=== PATIENT | female | born 1995 | race American Indian/Alaskan Native ===

== ENCOUNTER 2018-11-01 09:51 | Inpatient (IN) | payer MEDICAID ==
[2018-11-01] MEDS ORDERED: LACTATED RINGERS 1,000 ML ONE (11:10)
[2018-11-01] MEDS ORDERED: XYLOCAINE 2% INFILTRATI ONE (11:11)
[2018-11-01] MEDS ORDERED: AMPICILLIN/NS 2 GM/100 ML 2 GM/100 ML BAG IV ONE (11:11)
[2018-11-01] MEDS ORDERED: STADOL IV PRN (11:11)
[2018-11-01] MEDS ORDERED: ZOFRAN IV PRN ×2 (11:11→14:48)
[2018-11-01] MEDS ORDERED: BRETHINE SUB-Q PRN (11:11)
[2018-11-01] MEDS ORDERED: MINERAL OIL PO PRN (11:11)
[2018-11-01] MEDS ORDERED: BRETHINE IVP PRN (11:11)
[2018-11-01] MEDS ORDERED: SUBLIMAZE IV PRN (11:11)
[2018-11-01] MEDS ORDERED: NARCAN 0.4 MG/1 ML IV PRN (11:11)
[2018-11-01 11:38] LABS: Hemoglobin 13.7 gm/dl (10.1-14.3); Mean Corpuscular HGB Conc 33 % (30-34); Mean Corpuscular Volume 84 fl (79-97); Red Blood Count 4.98 M/mm3 (3.65-5.03)
[2018-11-01] MEDS ORDERED: PITOCin/NS 20 UNIT/1000ML DRIP 20 UNITS/1,000 ML BAG IV SCH ×2 (12:00→14:48)
[2018-11-01] MEDS ORDERED: LACTATED RINGERS 1,000 ML IV SCH (12:00)
[2018-11-01] MEDS ORDERED: PITOCin/NS 30 UNIT/500ML 30 UNITS/500 ML BAG IV SCH (12:00)
[2018-11-01 12:38] LABS: Platelet Count 86 K/mm3 (140-440)
--- NOTE | 2018-11-01 12:39 | History and Physical Report ---
History of Present Illness Date of examination: 11/01/18 Date of admission: 11/01/18 11:23 Chief complaint: contractions History of present illness: Pt is a 23 year old -[place] female primigravida VANESSA 11/25/18 at 36w4d who presents with regular contractions since 7 am and advanced cervical dilation at 8 cm. She is unsure of leakage of fluid. She has had care at [facility] since 10 wks complicated by genital herpes without lesion or prodrome, gonorrhea and chlamydia treated with negative test of cure in Jun 2018, gestational thrombocytopenia followed by Hematology. Trichomonas on 10/26/18 without test of cure. She is GBS positive. Past History Past Medical History: no pertinent history Past Surgical History: no surgical history [employer]ENER History: chlamydia (treated with negative DARIO ), gonorrhea (treated with negative DARIO ), herpes, trichomonas (diagnosed 10/26/18 ) Family/Genetic History: hypertension Social history: no significant social history - Obstetrical History Expected Date of Delivery: 11/25/18 Actual Gestation: 36 Week(s) 4 Day(s) : 1 Medications and Allergies Allergies Allergy/AdvReac Type Severity Reaction Status Date / Time No Known Allergies Allergy Unverified 11/01/18 11:32 Active Meds: Active Medications Butorphanol Tartrate (Stadol) 2 mg IV Q2H PRN PRN Reason: Pain , Severe (7-10) Ephedrine Sulfate (Ephedrine Sulfate) 10 mg IV Q2M PRN PRN Reason: Hypotension Fentanyl (Sublimaze) 100 mcg IV Q2H PRN PRN Reason: Labor Pain Ampicillin Sodium (Ampicillin/Ns 1 Gm/50 Ml) 1 gm in 50 mls @ 100 mls/hr IV Q4HR CY; Protocol Lactated Ringer's (Lactated Ringers) 1,000 mls @ 125 mls/hr IV DIRECT CY Oxytocin/Sodium Chloride (Pitocin/Ns 20 Unit/1000ml Drip) 20 units in 1,000 mls @ 125 mls/hr IV DIRECT CY Oxytocin/Sodium Chloride (Pitocin/Ns 30 Unit/500ml) 30 units in 500 mls @ 4 mls/hr IV TITR CY; Protocol Mineral Oil (Mineral Oil) 30 ml PO QHS PRN PRN Reason: Constipation Naloxone HCl (Narcan 0.4 Mg/1 Ml) 0.1 mg IV Q2MIN PRN PRN Reason: Res Rate </= 8 or 02 SAT < 92% Ondansetron HCl (Zofran) 4 mg IV Q8H PRN PRN Reason: Nausea And Vomiting Terbutaline Sulfate (Brethine) 0.25 mg SUB-Q ONCE PRN PRN Reason: Hyperstimulation/Hypertonicity Terbutaline Sulfate (Brethine) 0.25 mg IVP ONCE PRN PRN Reason: Hyperstimulation/Hypertonicity Review of Systems All systems: negative - Vital Signs Vital signs: Vital Signs Temp Pulse Resp BP 97.3 F L 83 18 122/63 11/01/18 10:21 11/01/18 10:21 11/01/18 10:21 11/01/18 10:21 Temp Pulse Resp BP Pulse Ox 97.3 F L 83 18 122/63 11/01/18 10:21 11/01/18 10:21 11/01/18 10:21 11/01/18 10:21 - Physical Exam Breasts: Positive: deferred Cardiovascular: Regular rate Lungs: Positive: Clear to auscultation Abdomen: Positive: soft (gravid ) Genitourinary (Female): Positive: normal external genitalia Uterus: Positive: enlarged (gravid) Extremities: Positive: normal - Obstetrical FHR: category 2 Uterine Contraction Monitor Mode: External Cervical Dilatation: 8 (per RN ) Results Result Diagrams: 11/01/18 11:20 Abnormal lab results 11/01/18 Range/Units 11:20 WBC 13.2 H (4.5-11.0) K/mm3 All other labs normal. Assessment and Plan A: IUP at 36w4d labor Genital Herpes without lesion or prodrome Recent trichomonas infection GBS positive status P: Admit to labor and delivery GBS prophylaxis Flagyl 2g PO
[2018-11-01] MEDS ORDERED: FLAGYL PO ONE (12:40)
--- NOTE | 2018-11-01 12:42 | Procedure Note ---
OB Delivery Note - Delivery Date of Delivery: 11/01/18 Surgeon: LOREN AL Estimated blood loss: other (400 mL) - Vaginal Delivery presentation: vertex Delivery position: OA Intrapartum events: labor-<37 weeks, PROM->1hr before delivery, mult.variable deceleratio Delivery induction: none Delivery monitor: external FHT, external uterine Route of delivery: Delivery placenta: spontaneous Delivery cord: 3 umbilical vessels Episiotomy: midline Delivery repair: vicryl Anesthesia: local - Infant A at 1 minute: 8 at 5 minutes: 9 Infant Gender: Male (2941g (6lb 8oz) @ 1201pm)
[2018-11-01] MEDS ORDERED: SODIUM CHLORIDE FLUSH SYRINGE 10 ML IV NR (14:48)
[2018-11-01] MEDS ORDERED: PHENERGAN PO PRN (14:48)
[2018-11-01] MEDS ORDERED: BENADRYL PO PRN (14:48)
[2018-11-01] MEDS ORDERED: TYLENOL PO PRN (14:48)
[2018-11-01] MEDS ORDERED: MILK OF MAGNESIA PO PRN (14:48)
[2018-11-01] MEDS ORDERED: TUCKS PAD TP PRN (14:48)
[2018-11-01] MEDS ORDERED: DULCOLAX PR PRN (14:48)
[2018-11-01] MEDS ORDERED: LANSINOH TP PRN ×2 (14:48)
[2018-11-01] MEDS ORDERED: PHENERGAN PR PRN (14:48)
[2018-11-01] MEDS: NORCO 5/325 PO PRN (15:07)
[2018-11-01] MEDS ORDERED: AMPICILLIN/NS 1 GM/50 ML 1 GM/50 ML BAG IV SCH (15:14)
[2018-11-01] MEDS ORDERED: DERMOPLAST TP PRN (18:22)
[2018-11-01] MEDS ORDERED: DERMOPLAST TP ONE (18:26)
[2018-11-02] MEDS: FEOSOL PO SCH ×2 (00:21→12:15)
[2018-11-02 01:18] LABS: Hemoglobin 10.9 gm/dl (10.1-14.3)
[2018-11-02] MEDS: NORCO 5/325 PO PRN ×3 (03:55→20:21)
[2018-11-02] MEDS ORDERED: BOOSTRIX IM ONE (12:43)
[2018-11-02] MEDS ORDERED: M-M-R II VACCINE SUB-Q ONE (12:43)
--- NOTE | 2018-11-02 12:43 | Progress Note ---
Assessment and Plan A/P PPD 1 s/p doing well d/c home tomorrow with f/u in 4 weeks routine Subjective - Subjective Date of service: 11/02/18 Principal diagnosis: s/p Patient reports: appetite normal, voiding normally, pain well controlled, flatus, ambulating normally : doing well Objective - Vital Signs Latest vital signs: Vital Signs Temp Pulse Resp BP BP Pulse Ox 11/02/18 11:29 98.0 F 80 18 129/81 97 11/02/18 08:13 97.9 F 84 18 125/75 98 11/02/18 03:55 18 11/02/18 01:47 98.7 F 72 20 120/73 94 11/01/18 21:10 98.7 F 85 18 120/79 100 11/01/18 16:13 98.6 F 104 H 18 121/85 100 11/01/18 15:07 16 11/01/18 14:05 98.8 F 82 14 123/75 99 11/01/18 13:41 76 135/79 Intake and Output 11/01/18 11/02/18 11/02/18 23:59 07:59 15:59 Intake Total 1070 Output Total 600 Balance 470 Intake: Oral 1070 Output: Urine 600 Void 600 Other: Total, Intake Amount 120 Total, Output Amount 300 # Voids Void 1 - Exam Breasts: Present: normal Cardiovascular: Present: Regular rate, Normal S1 Lungs: Present: Clear to auscultation, Normal air movement Abdomen: Present: normal appearance, soft, normal bowel sounds. Absent: distention, tenderness, guarding Vulva: both: normal Uterus: Present: normal, firm, fundal height below umbilicus. Absent: bogginess, tenderness Extremities: Present: normal Deep Tendon Reflex Grade: Normal +2 Incision: Present: dry, intact
--- NOTE | 2018-11-02 12:46 | Discharge Summary ---
Providers - Providers Date of Admission: 11/01/18 11:23 Date of discharge: 11/03/18 Attending physician: LOREN AL Primary care physician: LOREN AL Hospitalization Reason for admission: active labor Delivery: Episiotomy: none Laceration: none Incision: normal, dry, intact Other procedures: none complications: none Discharge diagnosis: IUP at term delivered baby: male Hospital course: unremarkable hospital course Condition at discharge: Good Disposition: DC-01 TO HOME OR SELFCARE Plan - Discharge Medications Prescriptions: oxyCODONE /ACETAMINOPHEN [Percocet 5/325] 1 tab PO Q6HR PRN #20 tablet PRN Reason: Pain - Provider Discharge Summary Activity: routine, no sex for 6 weeks, no strenuous exercise Diet: routine Instructions: routine Additional instructions: [] Smoking cessation referral if applicable(refer to patient education folder for contact #) [] Refer to [facility] Booklet Call your doctor immediately for: * Fever > 100.5 * Heavy vaginal bleeding ( >1 pad per hour) * Severe persistent headache * Shortness of breath * Reddened, hot, painful area to leg or breast * Drainage or odor from incision. * Keep incision clean and dry at all times and follow doctor's instructions regarding bathing/showering - Follow up plan Follow up: LOREN AL MD [Primary Care Provider] - 11/22/18
[2018-11-03] MEDS: FEOSOL PO SCH
[2018-11-03] MEDS: NORCO 5/325 PO PRN (04:06)
[2018-11-03 09:19] VITALS: BP 125/82
== END 2018-11-03 14:00 | disposition home or self-care (01) | DRG 774 ==
LOC: TRG 09:51 → LD 11:23 → OB 14:24
PROVIDERS: ADMIT Obstetrics & Gynecology; ATTEND Obstetrics & Gynecology
PROC: 10E0XZZ Delivery of Products of Conception, External Approach (ICD-10-PCS; principal; 2018-11-01)
PROC: 0W8NXZZ Division of Female Perineum, External Approach (ICD-10-PCS; 2018-11-01)
PROC: 3E0234Z Introduction of Serum, Toxoid and Vaccine into Muscle, Percutaneous Approach (ICD-10-PCS; 2018-11-02)
DX: O42.013 Preterm premature rupture of membranes, onset of labor within 24 hours of rupture, third trimester (principal); O98.32 Other infections with a predominantly sexual mode of transmission complicating childbirth; O60.14X0 Preterm labor third trimester with preterm delivery third trimester, not applicable or unspecified; O99.824 Streptococcus B carrier state complicating childbirth; O76 Abnormality in fetal heart rate and rhythm complicating labor and delivery; Z82.49 Family history of ischemic heart disease and other diseases of the circulatory system; Z3A.36 36 weeks gestation of pregnancy; Z37.0 Single live birth; Z23 Encounter for immunization
CPT/HCPCS: 36415; 59025; 85014; 85018; 85027; 86592; 86850; 86900; 86901; 88307; G0378; J0290; J2590; J3010; J7120